=== PATIENT | male | born 2000 | race Two or more races ===

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

== ENCOUNTER 2023-01-23 03:45 | Emergency (ER) | payer SELFPAY ==
[~2023-01-23] VITALS: Ht 182.9 cm; Wt 98.6 kg
[2023-01-23 03:50] VITALS: BP 137/64; PULSE 89; TEMP 98.7
[2023-01-23] MEDS ORDERED: IPRATROPIUM BROM 0.5 MG/2.5ML INH SOL NEB ONE (04:00)
[2023-01-23] MEDS ORDERED: ALBUTEROL SULF 2.5 MG/0.5ML(0.5%) NEB SOLN NEB ONE (04:00)
[2023-01-23 04:15] VITALS: RESP 16
[2023-01-23] MEDS ORDERED: methylPREDNISolone SOD SUCC 125 MG/2 ML VL IM ONE (05:15)
[2023-01-23] MEDS ORDERED: AZIT-43 PO (05:18)
[2023-01-23] MEDS ORDERED: ALBUAER3 IN (05:18)
[2023-01-23] MEDS ORDERED: PRED20TA2 PO (05:18)
[2023-01-23 06:10] VITALS: O2SAT 97
== END 2023-01-23 06:22 | disposition home or self-care (01) ==
LOC: ER 03:45
DX: J06.9 Acute upper respiratory infection, unspecified (principal); J45.901 Unspecified asthma with (acute) exacerbation
CPT/HCPCS: 94640; 96372; 99283; J2930; J7644